=== PATIENT | female | born 1975 | race Caucasian/White ===

== ENCOUNTER 2021-11-16 11:53 | Inpatient (IN) | payer SELFPAY ==
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
[2021-11-16 12:16] VITALS: BP 129/93; PULSE 101; RESP 15; O2SAT 99
--- NOTE | 2021-11-16 12:57 | ECG_ITS ---
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 Measurements Intervals [place] Rate: 84 P: ID: QRS: 63 QRSD: 78 T: 64 QT: 370 QTc: 440 Interpretive Statements Sinus rhythm with short ID interval NONSPECIFIC T-WAVE ABNORMALITY ABNORMAL RHYTHM ECG No previous ECG available for comparison Electronically Signed On 11-16-2021 16:13:16 CDT by Larry Jenkins M.D. [id number]
[2021-11-16 13:11] VITALS: BP 129/93; PULSE 101; RESP 15; O2SAT 99
[2021-11-16 13:20] LABS: Basophils # 0.1 10^3/uL (0.0-0.1); Basophils % 1.1 %; Eosinophils # 0.1 10^3/uL (0.0-0.8); Eosinophils % 1.1 %; Hematocrit 40.5 % (37.0-47.0); Hemoglobin 14.1 g/dL (11.5-15.3); Lymphocytes # 1.4 10^3/uL (0.8-4.8); Lymphocytes % 22.3 %; Mean Corpuscular HGB Conc 34.8 g/dL (30.0-36.0); Mean Corpuscular Hemoglobin 30.5 pg (28.0-34.0); Mean Corpuscular Volume 87.7 fl (81-99); Mean Platelet Volume 9.3 fL (7.4-10.4); Monocytes # 0.4 10^3/uL (0.2-0.9); Monocytes % 6.6 %; Neutrophils % 68.6 %; Nucleated Red Blood Cells % 0 %; Platelet Count 275 10^3/cmm (130-400); Red Blood Count 4.62 10^6/uL (4.1-5.3); Red Cell Distribution Width 12.2 % (12.1-15.1); White Blood Count 6.4 10^3/uL (4.0-10.0)
[2021-11-16 14:23] LABS: Alanine Aminotransferase 19 U/L (0-33); Albumin Level 4.8 g/dL (3.5-5.2); Alkaline Phosphatase 87 IU/L (35-105); Anion Gap 14.7 (5-19); Aspartate Amino Transferase 34 U/L (0-32); Blood Urea Nitrogen 14 mg/dL (6-20); Calcium 9.6 mg/dL (8.5-10.5); Carbon Dioxide 24 mmol/L (22-29); Chloride 102 mmol/L (98-107); Globulin 2.1 g/dL (1.3-4.6); Glomerular Filtration Rate 108.6 mL/min (90-130); Glucose 123 mg/dL (65-115); Osmolality Calculated 286 mOsm/kg (285-295); Potassium 3.7 mmol/L (3.5-5.1); Sodium 137 mmol/L (136-145); Thyroid Stimulating Hormone 1.79 uIU/mL (0.27-4.20); Total Protein 6.9 g/dL (6.6-8.7)
[2021-11-16 14:26] LABS: Acetaminophen < 5.0 ug/mL (10-30); Alcohol Level < 10 mg/dL (0-10); Salicylate < 0.3 mg/dL (3-10)
[2021-11-16 15:53] VITALS: BP 141/89; PULSE 90; RESP 17; O2SAT 97
[2021-11-16 16:45] VITALS: BP 141/89; PULSE 90; RESP 17; O2SAT 97
[2021-11-16 17:34] VITALS: BP 136/83; PULSE 91; RESP 18; TEMP 36.7; O2SAT 99
[2021-11-16] MEDS: acetaminophen 325 mg Tablet 650 MG PO (19:58)
[2021-11-16 20:42] VITALS: BP 109/69; PULSE 98; RESP 17; TEMP 36.7; O2SAT 97
--- NOTE | 2021-11-16 21:22 | PC.NURSE ---
1955-requested tylenol for head ache. 2057-States it is alittle better. She is very labile and fidgety. She is pacing the hallway. She is paranoid. She is refusing to take and PRN's.
--- NOTE | 2021-11-16 22:08 | PC.NURSE ---
Patient is at the nurses station asking a lot of questions. She is wanting to know again when she received Tylenol for her headache. She wrote down the time on her envelope. She stated she still had a headache and wanted Ibuprofen. THAIS Eldridge pulled the Ibuprofen from the [facility] and went through protocol asking the patients name and . Once answered, the RN went to give the Ibuprofen in a med cup with a cup of water. The patient looked at the pill and touched the pill, then refused it stating she would wait until morning. The RN offerred for the patient to see the packaging of the pill and the patient again refused and walked away. She went to her room, walked back up to the bench and wrote something on her envelope and then returned the patient pen she was writing with. sHE THEN WENT BACK TO HER ROOM AGAIN.
--- NOTE | 2021-11-16 23:15 | PC.NURSE ---
2221 Patient is at the desk again. She wants a copy of the policy that allows the staff to go through her personal belongings. She was given a copy of her personal belonging list that she signed, a copy of the medication list which she refused to sign. She began to argue that the paperwork was not correct and the Ibuprofen we have was not counted. The Ibuprofen was then counted with what appears to be 6 tabs. The bottle reads 200mg each but there is no proof that Ibuprofen is in the bottle. Security was called as the patient was escalating, demanding many things. Andres with security came up and went over the welcome policy with the patient which states for security purposes we have the right to go through her things. She continued to ask for her labs and medical records, the doctor who saw her in the Ed, etc. This teletypewriter operator said to the patient that we have been as accommodating as we can be at this time. If she has anymore requests or concerns she should speak to the pulling unit floorhand in the morning. She didn't even write down Carmelo's name that I noticed. She interrupted me several times and was more concerned with what physician would be seeing her in the morning. She stated that this teletypewriter operator was refusing to give her information that was rightly hers and again she was directed to speak with the pulling unit floorhand. She took her envelope and went to her room. Per Andres the application security consultant, he took a law class with her and says that this is why she is acting this way. She refuses to give us a urine sample stating that she will speak to the doctor in the morning about that. (She is on her period).
[2021-11-16] MEDS: blistex lip oint 7 gm Tube 1 APPLIC TOPICAL (23:32)
--- NOTE | 2021-11-17 03:16 | PC.NURSE ---
0300 Patient came storming out of her room. She kicked the brown paper bag outside of her room twice and it landed by room 151. She is in room 153. She walked very fast past the nurses station and went toward room 170. THAIS Sampson stepped into the call and stayed by the door at the nurses station. The patient came out of the call at room 170 and postured just like THAIS Sampson was standing. The patient glared at the nurse as she walked by and went back to her room. She is back in bed now.
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
[2021-11-17 14:00] VITALS: BP 136/80; PULSE 88; RESP 20; TEMP 36.6; O2SAT 98
[2021-11-17 21:35] VITALS: BP 103/65; PULSE 81; RESP 17; O2SAT 100
[2021-11-18 05:48] VITALS: BP 95/60; PULSE 77; RESP 16; O2SAT 97
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
[2021-11-18 14:00] VITALS: BP 93/64; PULSE 82; RESP 16; TEMP 36.4; O2SAT 97
[2021-11-19 06:00] VITALS: BP 101/62; PULSE 82; RESP 16; TEMP 36.6; O2SAT 98
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
[2021-11-19 08:28] VITALS: BP 101/62; PULSE 82; RESP 16; TEMP 36.6; O2SAT 98
== END 2021-11-19 09:11 | disposition home or self-care (01) | DRG 885 ==
LOC: ER 14:57 → NP 15:06
PROVIDERS: Admitting Provider Psychiatry & Neurology Psychiatry; Emergency Provider Emergency Medicine; Visit Provider Psychiatry & Neurology Psychiatry
DX: F23 Brief psychotic disorder (principal); F32.A Depression, unspecified; F15.10 Other stimulant abuse, uncomplicated
CPT/HCPCS: 80053; 80307; 84443; 85025; 93005; 97165; 99285

== ENCOUNTER 2022-04-27 13:03 | Inpatient (IN) | payer MEDICAID, SELFPAY ==
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
[2022-04-27 13:09] VITALS: BMI 22.1
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
[2022-04-27 13:49] LABS: Basophils % 0.6 %; Eosinophils % 0.5 %; Hematocrit 35.4 % (37.0-47.0); Hemoglobin 12.3 g/dL (11.5-15.3); Lymphocytes % 14.6 %; Mean Corpuscular HGB Conc 34.7 g/dL (30.0-36.0); Mean Corpuscular Hemoglobin 30.6 pg (28.0-34.0); Mean Corpuscular Volume 88.1 fl (81-99); Mean Platelet Volume 9.4 fL (7.4-10.4); Monocytes # 0.4 10^3/uL (0.2-0.9); Monocytes % 6.4 %; Neutrophils # 5.12 10^3/uL (1.8-7.7); Neutrophils % 77.6 %; Nucleated Red Blood Cells % 0 %; Platelet Count 272 10^3/cmm (130-400); Red Blood Count 4.02 10^6/uL (4.1-5.3); Red Cell Distribution Width 11.9 % (12.1-15.1); White Blood Count 6.6 10^3/uL (4.0-10.0)
[2022-04-27 14:08] LABS: Alanine Aminotransferase 13 U/L (0-33); Albumin Level 4.5 g/dL (3.5-5.2); Alkaline Phosphatase 87 U/L (35-105); Anion Gap 16.6 (5-19); Aspartate Amino Transferase 21 U/L (0-32); Blood Urea Nitrogen 9 mg/dL (6-20); Calcium 9.6 mg/dL (8.5-10.5); Carbon Dioxide 23 mmol/L (22-29); Chloride 103 mmol/L (98-107); Glomerular Filtration Rate 90.9 mL/min (90-130); Glucose 97 mg/dL (65-115); Lipase 27 U/L (13-60); Osmolality Calculated 287 mOsm/kg (285-295); Potassium 3.6 mmol/L (3.5-5.1); Sodium 139 mmol/L (136-145); Total Bilirubin 0.7 mg/dL (0.15-1.2); Total Protein 7.5 g/dL (6.6-8.7)
[2022-04-27 14:10] LABS: Acetaminophen < 5.0 ug/mL (10-30); Salicylate < 0.3 mg/dL (3-10)
[2022-04-27] MEDS: acetaminophen 500 mg Tablet PO (15:39)
--- NOTE | 2022-04-27 15:59 | PC.NURSE ---
was notified by staff that pt collected urine sample in cup and then poured it down the sink
--- NOTE | 2022-04-27 16:03 | PC.NURSE ---
attempted to call report, nurse unavailable at this time.
--- NOTE | 2022-04-27 16:47 | PC.NURSE ---
report called to THIAS Pereira
[2022-04-27 17:28] VITALS: BP 109/74; PULSE 89; RESP 18; TEMP 36.9; O2SAT 95
[2022-04-27 19:56] VITALS: BP 97/68; PULSE 97; RESP 17; O2SAT 97
[2022-04-27] MEDS: trazodone 50 mg Tablet PO ×2 (20:20→21:53)
[2022-04-27] MEDS: haloperidol 5 mg Tablet PO (20:43)
[2022-04-27] MEDS: hyDROXYzine 25 mg Capsule 50 MG PO (20:43)
[2022-04-28 06:00] VITALS: RESP 18
[2022-04-28 13:03] VITALS: BP 108/72; PULSE 76; RESP 19; TEMP 36.4; O2SAT 99
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
--- NOTE | 2022-04-28 18:08 | PC.NURSE ---
UDS ATTEMPT PATIENT LYING IN BED WITH EYES CLOSED. UPON ASKING HER FOR A URINE SPECIMEN SHE STATED SHE WANTED TO TALK TO HER EARTH SCIENCE PROFESSOR FIRST.
[2022-04-28 19:53] VITALS: BP 97/65; PULSE 83; RESP 15; TEMP 36.4; O2SAT 96
[2022-04-29 06:00] VITALS: BP 102/65; PULSE 109; RESP 18; TEMP 36.4; O2SAT 98; BMI 22.1
[2022-04-29 14:00] VITALS: BP 91/59; PULSE 89; RESP 16; TEMP 36.6; O2SAT 98
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
[2022-04-29 20:26] VITALS: BP 104/68; PULSE 94; RESP 18; TEMP 37.1; O2SAT 98
[2022-04-30 06:00] VITALS: BP 107/72; PULSE 82; RESP 18; TEMP 36.5; O2SAT 99
[2022-04-30 14:00] VITALS: BP 110/73; PULSE 82; RESP 16; TEMP 36.9; O2SAT 98
[2022-04-30] MEDS: nicotine 2 mg Gum BUCCAL (16:50)
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
[2022-04-30] MEDS: hyDROXYzine 25 mg Capsule 50 MG PO (20:33)
[2022-04-30 21:29] VITALS: BP 108/73; PULSE 77; RESP 18; TEMP 36.4; O2SAT 95
[2022-05-01 06:00] VITALS: BP 94/58; PULSE 71; RESP 18; TEMP 36.5; O2SAT 98
[2022-05-01] MEDS: paliperidone ER 6 mg Tablet PO (13:16)
[2022-05-01 14:00] VITALS: BP 107/73; PULSE 110; RESP 18; TEMP 36.5; O2SAT 98
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
[2022-05-01 21:26] VITALS: BP 107/73; PULSE 77; RESP 20; TEMP 36.5; O2SAT 98
[2022-05-02 06:00] VITALS: BP 94/65; PULSE 89; RESP 18; TEMP 36.8; O2SAT 97
[2022-05-02] MEDS: paliperidone ER 6 mg Tablet PO (08:44)
[2022-05-02 14:00] VITALS: BP 95/61; PULSE 115; RESP 18; TEMP 36.6; O2SAT 96
[2022-05-02] MEDS: simethicone 80 mg Chew PO (16:35)
[2022-05-02] MEDS: nicotine 2 mg Gum BUCCAL ×2 (16:44→18:38)
--- NOTE | 2022-05-02 16:52 | P.NPUPN_ITS ---
Subjective NPU Subjective: Patient presents today continuing to have significant paranoia and some cognitive confusion. Met with her and her mother in visitation and mother agreed that she is quite removed from baseline. She agreed that she had improved since the medication was initiated and we discussed the need for a 21- day hold which ultimately everyone is in agreement with. We discussed continuing to maximize the medication and the critical need to end the role that methamphetamine has played in her life by appropriate aftercare after discharge. We also discussed the risk and alternatives of increasing Invega to 9 g daily and she understood and agreed proceed as documented in this note. Mental Status Exam MSE Comments: This is a well-nourished well-developed white female in hospital scrubs with improving grooming and eye contact. No abnormal movements except for occasional psychomotor agitation. Mostly cooperative with exam in mild and occasional moderate distress. Speech was more spontaneous and more normal rate and volume. Mood described as better, affect occasionally hyperkinetic but less odd. Thought process mostly organized. Thought content: She denied suicidal or homicidal ideations, no delusions reported, but continued paranoia and persecutory thinking noted, she denied any auditory or visual hallucinations. Attention and concentration were improving and memory was mostly reliable but she continues to likely omit clinical information due to her concerns about that information might be used against her, but none were formally tested. She is alert and oriented x3. Insight and judgment and impulse control are limited and clearly impacted by her paranoia. Vitals/I&O/Wt Last Vital Signs Temp 98 F 05/02/22 14:00 Pulse 115 H 05/02/22 14:00 Resp 18 05/02/22 14:00 BP 95/61 05/02/22 14:00 Pulse Ox 96 05/02/22 14:00 O2 Del Method 05/02/22 14:00 Data NPU : 04/27/22 13:26 04/27/22 13:26 A&P Assessment and plan (1) Acute psychosis: Status: Acute (2) Depression: Status: Acute (3) Suicide attempt: Status: Acute (4) Methamphetamine abuse: Status: Acute Plan This is a 46-year-old white female with a long history of addiction and recent challenges with methamphetamine who presents with suicidal ideation and limited ability as a historian secondary to medications she was given as well as withdrawal. 1. Continue current medications. Started Invega 6 mg p.o. daily for psychosis and increased to 9 mg p.o. daily. 2. Encourage individual, group and milieu therapy 3. Continue q-15 minute check for safety 4. Recommend sober living treatment at the highest level of care to which the patient is willing to commit. 5. We will file for 21-day hold in the morning. Involuntary Hold Information 96 Hour Hold: 96 Hour Involuntary Admission: Yes 96 Hour Hold Ending Date: 05/03/22 96 Hour Hold Ending Time: 16:45 Attestations NPU Medical Necessity Statement*: Inpatient hospitalization is medically necessary and the clinically appropriate intervention at this time. We will monitor medications and make changes as indicated. Likely length of stay is 6-8 days. Coding Level of Care Code Acute Closet Organizer for [facility] Diagnoses Acute psychosis F23 Depression F32.A Suicide attempt T14.91XA Methamphetamine abuse F15.10
[2022-05-02 20:23] VITALS: PULSE 83; RESP 16; TEMP 36.7; O2SAT 97
[2022-05-02] MEDS: hyDROXYzine 25 mg Capsule 50 MG PO (20:37)
[2022-05-03 06:00] VITALS: BP 106/71; PULSE 89; RESP 16; TEMP 36.6; O2SAT 98
[2022-05-03] MEDS: paliperidone ER 3 mg Tablet 9 MG PO (08:26)
--- NOTE | 2022-05-03 11:53 | W.PM.NPUPNS ---
Subjective NPU Subjective: Patient presents today excited about the fact she was accepted at [facility]. We discussed the challenges that she will be facing in her sobriety and our goal to make sure that she is in the right state of mind to face the challenges. We discussed filing the 21-day hold paperwork this morning and the fact that the hearing will likely be in the next 3 days days. She needed reassurance that ultimately the plan was to discharge her to [facility] when the thought her paranoia has cleared. Mental Status Exam MSE Comments: This is a well-nourished well-developed white female in hospital scrubs with improving grooming and eye contact. No abnormal movements except for occasional psychomotor agitation. Mostly cooperative with exam in mild distress. Speech was more spontaneous and more normal rate and volume. Mood described as better, affect occasionally hyperkinetic but less odd. Thought process mostly organized. Thought content: She denied suicidal or homicidal ideations, no delusions reported, but continued paranoia and persecutory thinking noted, she denied any auditory or visual hallucinations. Attention and concentration were improving and memory was mostly reliable but she continues to likely omit clinical information due to her concerns about that information might be used against her, but none were formally tested. She is alert and oriented x3. Insight and judgment and impulse control are limited and clearly impacted by her paranoia. Vitals/I&O/Wt Last Vital Signs Temp 97.9 F 05/03/22 06:00 Pulse 89 05/03/22 06:00 Resp 16 05/03/22 06:00 BP 106/71 05/03/22 06:00 Pulse Ox 98 05/03/22 06:00 O2 Del Method 05/03/22 06:00 Data NPU : 04/27/22 13:26 04/27/22 13:26 A&P Assessment and plan (1) Acute psychosis: Status: Acute (2) Depression: Status: Acute (3) Suicide attempt: Status: Acute (4) Methamphetamine abuse: Status: Acute Plan This is a 46-year-old white female with a long history of addiction and recent challenges with methamphetamine who presents with suicidal ideation and limited ability as a historian secondary to medications she was given as well as withdrawal. 1. Continue current medications. Started Invega 6 mg p.o. daily for psychosis and increased to 9 mg p.o. daily. 2. Encourage individual, group and milieu therapy 3. Continue q-15 minute check for safety 4. Recommend sober living treatment at the highest level of care to which the patient is willing to commit. She was accepted recommendation upon discharge from the hospital. 5. We will file for 21-day hold in the morning. Involuntary Hold Information 96 Hour Hold: 96 Hour Involuntary Admission: Yes 96 Hour Hold Ending Date: 05/03/22 96 Hour Hold Ending Time: 16:45 Attestations NPU Medical Necessity Statement*: Inpatient hospitalization is medically necessary and the clinically appropriate intervention at this time. We will monitor medications and make changes as indicated. Likely length of stay is 5-7 days. Coding Level of Care Code Acute Project Management Professor for Chad Fwd Diagnoses Acute psychosis F23 Depression F32.A Suicide attempt T14.91XA Methamphetamine abuse F15.10
[2022-05-03 14:00] VITALS: BP 98/65; PULSE 92; RESP 20; TEMP 36.8; O2SAT 97
[2022-05-03] MEDS: nicotine 2 mg Gum BUCCAL ×2 (17:11→20:45)
[2022-05-03 20:43] VITALS: BP 110/76; PULSE 89; RESP 17; TEMP 36.7; O2SAT 96
[2022-05-03] MEDS: hyDROXYzine 25 mg Capsule 50 MG PO (20:45)
[2022-05-04 07:05] VITALS: BP 107/72; PULSE 86; RESP 12; TEMP 36.4; O2SAT 99
[2022-05-04] MEDS: nicotine 2 mg Gum BUCCAL ×4 (09:16→20:12)
[2022-05-04] MEDS: hyDROXYzine 25 mg Capsule 50 MG PO ×2 (09:16→20:09)
[2022-05-04] MEDS: paliperidone ER 3 mg Tablet 9 MG PO (09:16)
[2022-05-04 14:00] VITALS: BP 102/70; PULSE 98; RESP 16; TEMP 36.6; O2SAT 98
--- NOTE | 2022-05-04 18:00 | P.NPUPN_ITS ---
Subjective NPU Subjective: Patient presents today reporting that she is sorry about her resistance to us helping her. She is having slow and steady improvements with some mild lingering psychosis/anxiety. Her aunt visited today and was very supportive. We discussed that at her current pace that it is quite likely she could go to [facility] at the beginning of next week. We discussed the importance of her taking her medication and that we are expecting continued improvement but that she needs to avoid methamphetamine use in the future given this reaction. Mental Status Exam MSE Comments: This is a well-nourished well-developed white female in hospital scrubs with improving grooming and eye contact. No abnormal movements except for occasional psychomotor agitation. Mostly cooperative with exam in mild distress. Speech was more spontaneous and more normal rate and volume. Mood described as better, affect occasionally hyperkinetic but less odd. Thought process mostly organized. Thought content: She denied suicidal or homicidal ideations, no delusions reported, but continued paranoia and persecutory thinking noted, she denied any auditory or visual hallucinations. Attention and concentration were improving and memory was mostly reliable but she continues to likely omit clinical information due to her concerns about that information might be used against her, but none were formally tested. She is alert and oriented x3. Insight and judgment and impulse control are limited and clearly impacted by her paranoia. Vitals/I&O/Wt Last Vital Signs Temp 98 F 05/04/22 14:00 Pulse 98 05/04/22 14:00 Resp 16 05/04/22 14:00 BP 102/70 05/04/22 14:00 Pulse Ox 98 05/04/22 14:00 O2 Del Method 05/04/22 14:00 Data NPU : 04/27/22 13:26 04/27/22 13:26 A&P Assessment and plan (1) Acute psychosis: (2) Depression: (3) Suicide attempt: (4) Methamphetamine abuse: Plan This is a 46-year-old white female with a long history of addiction and recent challenges with methamphetamine who presents with suicidal ideation and limited ability as a historian secondary to medications she was given as well as withdrawal. 1. Continue current medications. Started Invega 6 mg p.o. daily for psychosis and increased to 9 mg p.o. daily. 2. Encourage individual, group and milieu therapy 3. Continue q-15 minute check for safety 4. Recommend sober living treatment at the highest level of care to which the patient is willing to commit. She was accepted at [facility] upon discharge from the hospital. 5. Her 21 day hold hearing date is 05/08/2022. Involuntary Hold Information 96 Hour Hold: 96 Hour Involuntary Admission: Yes 96 Hour Hold Ending Date: 05/03/22 96 Hour Hold Ending Time: 16:45 Attestations NPU Medical Necessity Statement*: Inpatient hospitalization is medically necessary and the clinically appropriate intervention at this time. We will monitor medications and make changes as indicated. Likely length of stay is 4-6 days. Coding Level of Care Code Acute Electrical And Instrumentation Manager for g Fwd Diagnoses Acute psychosis F23 Depression F32.A Suicide attempt T14.91XA Methamphetamine abuse F15.10
[2022-05-04] MEDS: simethicone 80 mg Chew PO (18:57)
[2022-05-04 19:34] VITALS: BP 112/78; PULSE 100; RESP 18; TEMP 36.7; O2SAT 99
[2022-05-04] MEDS: OLANZapine 5 mg ODT PO (21:59)
[2022-05-05 06:00] VITALS: BP 117/82; PULSE 91; RESP 16; TEMP 36.4; O2SAT 98
[2022-05-05] MEDS: paliperidone ER 3 mg Tablet 9 MG PO (08:08)
--- NOTE | 2022-05-05 08:24 | P.NPUPN_ITS ---
Subjective NPU Subjective: Patient presents today continuing to focus on ultimately going to [facility] she will likely gain of the week. She is excited about her children visiting today. She continues to have decreasing paranoia though is still present. She denies any side effects from the medication and reports eating fine and sleeping better. Mental Status Exam MSE Comments: This is a well-nourished well-developed white female in hospital scrubs with improving grooming and eye contact. No abnormal movements except for resolving psychomotor agitation. Mostly cooperative with exam in no acute distress. Speech was more spontaneous and more normal rate and volume. Mood described as better, affect congruent and less odd. Thought process mostly organized. Thought content: She denied suicidal or homicidal ideations, no delusions reported, but clearly resolving paranoia and persecutory thinking noted, she denied any auditory or visual hallucinations. Attention and concentration were improving and memory was mostly reliable but she continues to likely omit clinical information due to her concerns about that information might be used against her, but none were formally tested. She is alert and oriented x3. Insight and judgment and impulse control are limited, but improving. Vitals/I&O/Wt Last Vital Signs Temp 98.1 F 05/04/22 19:34 Pulse 100 05/04/22 19:34 Resp 18 05/04/22 19:34 BP 112/78 05/04/22 19:34 Pulse Ox 99 05/04/22 19:34 O2 Del Method 05/04/22 14:00 Data NPU : 04/27/22 13:26 04/27/22 13:26 A&P Assessment and plan (1) Acute psychosis: (2) Depression: (3) Suicide attempt: (4) Methamphetamine abuse: Plan This is a 46-year-old white female with a long history of addiction and recent challenges with methamphetamine who presents with suicidal ideation and limited ability as a historian secondary to medications she was given as well as withdrawal. 1. Continue current medications. Started Invega 6 mg p.o. daily for psychosis and increased to 9 mg p.o. daily. 2. Encourage individual, group and milieu therapy 3. Continue q-15 minute check for safety 4. Recommend sober living treatment at the highest level of care to which the patient is willing to commit. She was accepted at [facility] upon discharge from the hospital. 5. Her 21 day hold hearing date is 05/08/2022. Involuntary Hold Information 96 Hour Hold: 96 Hour Involuntary Admission: Yes 96 Hour Hold Ending Date: 05/03/22 96 Hour Hold Ending Time: 16:45 Attestations NPU Medical Necessity Statement*: Inpatient hospitalization is medically necessary and the clinically appropriate intervention at this time. We will monitor medications and make changes as indicated. Likely length of stay is 3-5 days. Coding Level of Care Code Acute Machine Sorter for Chad Fwd Diagnoses Acute psychosis F23 Depression F32.A Suicide attempt T14.91XA Methamphetamine abuse F15.10
[2022-05-05] MEDS: nicotine 2 mg Gum BUCCAL ×2 (11:51→14:15)
[2022-05-05 14:00] VITALS: BP 109/77; PULSE 106; RESP 18; TEMP 36.4; O2SAT 94
[2022-05-05] MEDS: hyDROXYzine 25 mg Capsule 50 MG PO (16:28)
[2022-05-05] MEDS: simethicone 80 mg Chew PO ×2 (16:28→20:25)
[2022-05-05 20:10] VITALS: BP 97/64; PULSE 107; RESP 16; TEMP 36.7; O2SAT 96
[2022-05-05] MEDS: trazodone 50 mg Tablet PO (20:26)
[2022-05-06 06:00] VITALS: BP 102/69; PULSE 90; RESP 18; TEMP 36.5; O2SAT 98; BMI 22.1
[2022-05-06] MEDS: paliperidone ER 3 mg Tablet 9 MG PO (08:13)
--- NOTE | 2022-05-06 08:50 | P.NPUPN_ITS ---
Subjective NPU Subjective: Patient presents today reporting that she is feeling less paranoid and endorsing optimism that this is clearing. Staff reports that she is having less paranoid behavior, less odd door shutting etc. she continues to report a plan to go to [facility] and reports a plan to stay there for as long as necessary for her to get her psychosis and addiction under control. She is eating and sleeping much better. Mental Status Exam MSE Comments: This is a well-nourished well-developed white female in hospital scrubs with improving grooming and eye contact. No abnormal movements except for resolving psychomotor agitation. Mostly cooperative with exam in no acute distress. Speech was more spontaneous and more normal rate and volume. Mood described as better, affect congruent. Thought process mostly organized. Thought content: She denied suicidal or homicidal ideations, no delusions r eported, but resolving paranoia and persecutory thinking noted, she denied any auditory or visual hallucinations. Attention and concentration were improving and memory was mostly reliable but she continues to likely omit clinical information due to her concerns about that information might be used against her, but none were formally tested. She is alert and oriented x3. Insight and judgment and impulse control are limited, but improving. Vitals/I&O/Wt Last Vital Signs Temp 97.7 F 05/06/22 06:00 Pulse 90 05/06/22 06:00 Resp 18 05/06/22 06:00 BP 102/69 05/06/22 06:00 Pulse Ox 98 05/06/22 06:00 O2 Del Method 05/04/22 14:00 Data NPU : 04/27/22 13:26 04/27/22 13:26 A&P Assessment and plan (1) Acute psychosis: (2) Depression: (3) Suicide attempt: (4) Methamphetamine abuse: Plan This is a 46-year-old white female with a long history of addiction and recent challenges with methamphetamine who presents with suicidal ideation and limited ability as a historian secondary to medications she was given as well as withdrawal. 1. Continue current medications. Started Invega 6 mg p.o. daily for psychosis and increased to 9 mg p.o. daily. 2. Encourage individual, group and milieu therapy 3. Continue q-15 minute check for safety 4. Recommend sober living treatment at the highest level of care to which the patient is willing to commit. She was accepted at [facility] upon dis charge from the hospital. 5. Her 21 day hold hearing date is 05/08/2022. Involuntary Hold Information 96 Hour Hold: 96 Hour Involuntary Admission: Yes 96 Hour Hold Ending Date: 05/03/22 96 Hour Hold Ending Time: 16:45 Attestations NPU Medical Necessity Statement*: Inpatient hospitalization is medically necessary and the clinically appropriate intervention at this time. We will monitor medications and make changes as indicated. Likely length of stay is 2-4 days. Coding Level of Care Code Acute Under Sheriff for [facility] Fwd Diagnoses Acute psychosis F23 Depression F32.A Suicide attempt T14.91XA Methamphetamine abuse F15.10
[2022-05-06] MEDS: nicotine 2 mg Gum BUCCAL ×3 (11:50→18:10)
[2022-05-06 14:00] VITALS: BP 125/81; PULSE 107; RESP 18; TEMP 36.4; O2SAT 97
[2022-05-06] MEDS: hyDROXYzine 25 mg Capsule 50 MG PO (16:03)
[2022-05-06] MEDS: simethicone 80 mg Chew PO (18:10)
[2022-05-06] MEDS: OLANZapine 5 mg ODT PO (18:33)
[2022-05-06 20:03] VITALS: BP 120/74; PULSE 102; RESP 16; TEMP 36.4; O2SAT 97
[2022-05-06] MEDS: trazodone 50 mg Tablet PO (20:14)
[2022-05-07] MEDS: acetaminophen 325 mg Tablet 650 MG PO (01:03)
[2022-05-07 06:00] VITALS: BP 98/69; PULSE 88; RESP 14; TEMP 36.3; O2SAT 98
[2022-05-07] MEDS: paliperidone ER 3 mg Tablet 9 MG PO (08:15)
[2022-05-07] MEDS: nicotine 2 mg Gum BUCCAL ×3 (08:15→16:27)
[2022-05-07] MEDS: simethicone 80 mg Chew PO (11:38)
--- NOTE | 2022-05-07 12:42 | W.PM.NPUPNS ---
Subjective NPU Subjective: The patient is a 46-year-old white female admitted with suicidal ideation by gunshot with a history of methamphetamine abuse abuse and depression. The patient reports that she had removed her rifle from her home as this was her sons. She reported not feeling suicidal and reports that she was willing to consider psychiatric counseling. She endorses a history of PTSD related symptoms and states that she has never received any treatment for this in the past. She reports no side effects from the paliperidone. She reports no hallucinations at this time. She continued to minimize her depression and stated that she had never intended on shooting herself with a gun. Mental Status Exam MSE Comments: This is a well-nourished well-developed white female in hospital scrubs with improving grooming and eye contact. No abnormal movements except for resolving psychomotor agitation. Mostly cooperative with exam in no acute distress. Speech was more spontaneous and more normal rate and volume. Mood described as better, affect was constricted and mood incongruent. Thought process linear, but superficial. Thought content: She denied suicidal or homicidal ideation, no delusions reported, no clear evidence of paranoia. She denied any auditory or visual hallucinations. Attention and concentration were adequate and memory was selectively good with attempts at minimizing clear facts reported previously. She is alert and oriented x3. Insight and judgment and impulse control are limited, but improving. Vitals/I&O/Wt Last Vital Signs Temp 97.4 F L 05/07/22 06:00 Pulse 88 05/07/22 06:00 Resp 14 05/07/22 06:00 BP 98/69 05/07/22 06:00 Pulse Ox 98 05/07/22 06:00 O2 Del Method 05/04/22 14:00 Weight last 48 hrs Weight 56.699 kg Data NPU : 04/27/22 13:26 04/27/22 13:26 A&P Assessment and plan (1) Acute psychosis: (2) Depression: (3) Suicide attempt: (4) Methamphetamine abuse: Plan This is a 46-year-old white female with a long history of addiction and recent challenges with methamphetamine who presents with suicidal ideation and limited ability as a historian secondary to medications she was given as well as withdrawal. 1. Continue current medications. Continue invega 9mg daily 2. Encourage individual, group and milieu therapy 3. Continue q-15 minute check for safety 4. Recommend sober living treatment at the highest level of care to which the patient is willing to commit. She was accepted at [facility] upon discharge from the hospital. 5. Her 21 day hold hearing date is 05/08/2022. Involuntary Hold Information 96 Hour Hold: 96 Hour Involuntary Admission: Yes 96 Hour Hold Ending Date: 05/03/22 96 Hour Hold Ending Time: 16:45 Attestations NPU Medical Necessity Statement*: Inpatient hospitalization is medically necessary and the clinically appropriate intervention at this time. We will monitor medications and make changes as indicated. Likely length of stay is 2-4 days. Coding Level of Care Code Established Pt Acute Event Marketing Representative for [facility] Fwd Patient Type Established History Problem Focused Exam Problem Focused Medical Decision Making Straight Forward Diagnoses Acute psychosis F23 Depression F32.A Suicide attempt T14.91XA Methamphetamine abuse F15.10
[2022-05-07 14:00] VITALS: BP 94/60; PULSE 106; RESP 18; TEMP 36.6; O2SAT 96
[2022-05-07] MEDS: ibuprofen 600 mg Tablet PO (17:01)
[2022-05-07] MEDS: magnesium hydroxide 30 mL UDC PO (18:47)
[2022-05-07 20:25] VITALS: BP 117/76; PULSE 135; RESP 18; TEMP 36.7; O2SAT 96
[2022-05-07] MEDS: trazodone 50 mg Tablet PO (20:32)
[2022-05-07] MEDS: hyDROXYzine 25 mg Capsule 50 MG PO (23:04)
[2022-05-08] MEDS: OLANZapine 5 mg ODT PO (01:05)
--- NOTE | 2022-05-08 01:08 | PC.NURSE ---
Pt came to desk requesting the pill that goes under the tongue . state she just kind get to sleep . pt was asked what was making her anxious enough that she can't sleep , pt stated wanting to go home . Pt has voiced how she feels about not being released like Dr Messina and she discussed.
[2022-05-08 06:00] VITALS: BP 99/62; PULSE 85; RESP 16; TEMP 36.4; O2SAT 98
[2022-05-08] MEDS: nicotine 2 mg Gum BUCCAL (08:05)
[2022-05-08] MEDS: paliperidone ER 3 mg Tablet 9 MG PO (08:05)
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
[2022-05-08 12:10] VITALS: BP 99/62; PULSE 85; RESP 16; TEMP 36.4; O2SAT 98
== END 2022-05-08 14:05 | disposition home or self-care (01) | DRG 914 ==
LOC: ER 13:49 → NP 14:55
PROVIDERS: Admitting Provider Psychiatry & Neurology Psychiatry; Emergency Provider Emergency Medicine; Visit Provider Psychiatry & Neurology Psychiatry
DX: T14.91XA Suicide attempt, initial encounter (principal); F23 Brief psychotic disorder; F15.23 Other stimulant dependence with withdrawal; Y92.9 Unspecified place or not applicable; F32.A Depression, unspecified; Z81.8 Family history of other mental and behavioral disorders; Z62.810 Personal history of physical and sexual abuse in childhood; Z62.811 Personal history of psychological abuse in childhood
CPT/HCPCS: 80053; 80307; 83690; 85025; 97150; 97165; 99285

== ENCOUNTER → 2022-12-24 14:22 | Outpatient (BNVA) | payer BC, SELFPAY | PROVIDERS: Visit Provider Nurse Practitioner | DX: Z79.899 Other long term (current) drug therapy (principal) | CPT/HCPCS: 80061; 83036 ==

== ENCOUNTER 2023-10-21 17:05 | Emergency (ER) | payer SELFPAY ==
[2023-10-21 17:15] VITALS: BP 135/87; PULSE 80; RESP 18; TEMP 36.7; O2SAT 98; BMI 25.3
--- NOTE | 2023-10-21 17:21 | ECG_ITS ---
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 Measurements Intervals [place] Rate: 76 P: 74 [place]: 120 QRS: 76 QRSD: 81 T: 60 QT: 395 QTc: 445 Interpretive Statements SINUS RHYTHM WITH SINUS ARRHYTHMIA Compared to ECG 11/16/2021 13:24:31 Short [place] interval no longer present T-wave abnormality no longer present Electronically Signed On 10-22-2023 22:59:08 CDT by Alba Villeda M.D. [id number]
--- NOTE | 2023-10-21 17:21 | XRR_ITS ---
PROCEDURE INFORMATION: Exam: XR Chest Exam date and time: 10/21/2023 5:40 PM Age: 48 years old Clinical indication: Chest wall pain; Additional info: Chest pain TECHNIQUE: Imaging protocol: Radiologic exam of the chest. Views: 1 view. COMPARISON: No relevant prior studies available. FINDINGS: Lungs: Unremarkable. No consolidation or mass. Pleural spaces: Unremarkable. No pleural effusion. No pneumothorax. Heart/Mediastinum: Unremarkable. No cardiomegaly. Bones/joints: Unremarkable. XR/XR chest 1V portable [id number] IMPRESSION: No acute findings.
[2023-10-21 18:39] LABS: Basophils % 0.4 %; Eosinophils % 0.1 %; Hematocrit 35.8 % (36-47); Lymphocytes # 1.6 10^3/uL (0.8-4.8); Lymphocytes % 20.4 %; Mean Corpuscular HGB Conc 33.8 g/dL (30-55); Mean Corpuscular Hemoglobin 29.7 pg (27-33); Mean Platelet Volume 9.2 fL (7.4-10.4); Monocytes # 0.4 10^3/uL (0.2-0.9); Monocytes % 5.1 %; Neutrophils # 5.91 10^3/uL (1.8-7.7); Neutrophils % 73.8 %; Nucleated Red Blood Cells % 0 %; Platelet Count 234 10^3/cmm (157-399); Red Blood Count 4.07 10^6/uL (3.85-5.65); Red Cell Distribution Width 12.1 % (12.1-15.1); White Blood Count 8.02 10^3/uL (3.29-11.43)
[2023-10-21 19:04] LABS: Alanine Aminotransferase 20 U/L (0-33); Albumin Level 4.6 g/dL (3.5-5.2); Alkaline Phosphatase 75 U/L (35-105); Aspartate Amino Transferase 25 U/L (0-32); Blood Urea Nitrogen 11 mg/dL (6-20); Calcium 9.2 mg/dL (8.5-10.5); Carbon Dioxide 25 mmol/L (22-29); Chloride 103 mmol/L (98-107); Creatinine Clr Calc Pharmacy 127.3642; Globulin 2.7 g/dL (1.3-4.6); Glomerular Filtration Rate 132.8 mL/min (90-130); Glucose 102 mg/dL (65-115); Osmolality Calculated 292 mOsm/kg (285-295); Sodium 141 mmol/L (136-145); Total Bilirubin 0.4 mg/dL (0.15-1.2); Total Protein 7.3 g/dL (6.6-8.7); Troponin(5th) Baseline < 6 ng/L (0-10)
--- NOTE | 2023-10-21 19:21 | ECG_ITS ---
[facility] Test Date: 2023-10-21 Pat Name: Viviane Anderson Department: Room: Gender: Female Manager Functional: : 1975 Requested By: Andres Soto Order Number: [id number] Cordon MD: Alba Villeda M.D. Measurements Intervals [place] Rate: 66 P: 56 [place]: 121 QRS: 47 QRSD: 73 T: 38 QT: 392 QTc: 413 Interpretive Statements SINUS RHYTHM NONSPECIFIC T-WAVE ABNORMALITY Compared to ECG 10/21/2023 16:11:19 T-wave abnormality now present Sinus arrhythmia no longer present Electronically Signed On 10-22-2023 23:10:23 CDT by Alba Villeda M.D. [id number]
--- NOTE | 2023-10-21 19:28 | ED_ITS ---
HPI - Chest Pain 2 General: Chief Complaint: Chest Pain Stated Complaint: chest pains, n, neck arm pain Time Seen by Provider: 10/21/23 19:26 History of Present Illness: 48-year-old female presents emergency de partment states that she was seen by her primary care provider 5 days ago with concerns of flulike symptoms and she states she received a swab and was advised that she did not have influenza. She states she also has been intermittently waking up and feeling like she had a very sour stomach and a burning type pain to her substernal epigastric area. She states she also feels intermittently like there is a vein on the side of her neck that feels like it is on fire she states nothing specifically makes it feel like that and nothing seems to cause it to feel better. She states she has been under a moderate amount of stress because they just decreased her work hours by 5 hours and she is concerned about the decreased and pay. She states she does have intermittent nausea and some diarrhea and has had a cough that is nonproductive for the previous week, but states that it is much better today. 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 Vital signs as documented. No acute distress at present. Alert and oriented-to person, place, time and situation. Head, eyes, ears, nose, mouth, throat: Normocephalic, atraumatic. Pupils-equal, round, reactive to light. No scleral icterus. Normal-appearing external ears. Normal appearing nasal turbinates, no drainage. No obvious oral lesions, posterior oropharynx without erythema or exudates. Neck: Supple, trachea is midline, no lymphadenopathy, no jugular venous distension, thyromegaly, or carotid bruits. Carotid upstrokes are brisk bilaterally. Lungs: clear to auscultation to all lung solares. Symmetrical rise and fall of chest, no obvious signs of increased work of breathing at present. Cardiac: Regular rate and rhythm, positive S1, S2. No murmurs, rubs or gallops that I can appreciate Abdomen: Soft, non-tender to palpation, normal active bowel sounds to all quadrants. No palpable masses, no organomegaly and abdominal bruits. Extremities: 2+ pulses in the upper extremities that are equal bilaterally, 2+ pulses in the lower extremities that are equal bilaterally. Non-edematous. Moves all extremities well, sensation to all extremities are noted. Skin: Warm, dry, intact. Course 2 Vital Signs: Vital signs: Vital Signs Temperature 98.1 F 10/21/23 17:15 Pulse Rate 71 10/21/23 21:19 Respiratory Rate 24 H 10/21/23 21:19 Blood Pressure 135/87 10/21/23 17:15 Pulse Oximetry 98 10/21/23 17:15 Oxygen Delivery Me thod Room Air 10/21/23 17:15 MDM - Chest Pain Medical Decision Making Physical exam completed and documented reviewed the patient's CBC and CMP are without any significant abnormalities. UA is negative physical exam findings and history lend more towards GERD and acid reflux I will prescribe her pantoprazole and have her follow-up with her primary care provider. Medical Records I reviewed the patient's medical records. Lab Data I reviewed the patient's lab results. 10/21/23 18:14 10/21/23 18:14 Radiology Impressions Chest X-Ray 10/21/23 17:21 IMPRESSION: No acute findings. Laboratory Results WBC 8.02 10^3/uL (3.29-11.43) 10/21/23 18:14 RBC 4.07 10^6/uL (3.85-5.65) 10/21/23 18:14 Hgb 12.10 g/dL (11.27-16.99) 10/21/23 18:14 Hct 35.8 % (36-47) L 10/21/23 18:14 MCV 88.0 fl (85-98) 10/21/23 18:14 MCH 29.7 pg (27-33) 10/21/23 18:14 MCHC 33.8 g/dL (30-55) 10/21/23 18:14 RDW 12.1 % (12.1-15.1) 10/21/23 18:14 Plt Count 234 10^3/cmm (157-399) 10/21/23 18:14 MPV 9.2 fL (7.4-10.4) 10/21/23 18:14 Neut % (Auto) 73.8 % 10/21/23 18:14 Lymph % (Auto) 20.4 % 10/21/23 18:14 [place] % (Auto) 5.1 % 10/21/23 18:14 Eos % (Auto) 0.1 % 10/21/23 18:14 Baso % (Auto) 0.4 % 10/21/23 18:14 Neut # (Auto) 5.91 10^3/uL (1.8-7.7) 10/21/23 18:14 Lymph # (Auto) 1.6 10^3/uL (0.8-4.8) 10/21/23 18:14 [place] # (Auto) 0.4 10^3/uL (0.2-0.9) 10/21/23 18:14 Eos # (Auto) 0.0 10^3/uL (0.0-0.8) 10/21/23 18:14 Baso # (Auto) 0.0 10^3/uL (0.0-0.1) 10/21/23 18:14 Nucleated RBC % (auto) 0 % 10/21/23 18:14 Nucleated RBCs # 0.0 /100WBC 10/21/23 18:14 Sodium 141 mmol/L (136-145) 10/21/23 18:14 Potassium 4.0 mmol/L (3.5-5.1) 10/21/23 18:14 Chloride 103 mmol/L (98-107) 10/21/23 18:14 Carbon Dioxide 25 mmol/L (22-29) 10/21/23 18:14 Anion Gap 17.0 (5-19) 10/21/23 18:14 BUN 11 mg/dL (6-20) 10/21/23 18:14 Creatinine 0.5 mg/dL (0.5-0.9) 10/21/23 18:14 GFR Calculation 132.8 mL/min (90-130) H 10/21/23 18:14 Glucose 102 mg/dL (65-115) 10/21/23 18:14 Calculated Osmolality 292 mOsm/kg (285-295) 10/21/23 18:14 Calcium 9.2 mg/dL (8.5-10.5) 10/21/23 18:14 Total Bilirubin 0.4 mg/dL (0.15-1.2) 10/21/23 18:14 AST 25 U/L (0-32) 10/21/23 18:14 ALT 20 U/L (0-33) 10/21/23 18:14 Alkaline Phosphatase 75 U/L (35-105) 10/21/23 18:14 Troponin T Baseline < 6 ng/L (0-10) 10/21/23 18:14 Troponin T 120 Minute 6.00 ng/L (0-10) 10/21/23 20:12 Delta Troponin T 0.81943 ABS# (0-10) 10/21/23 20:12 Total Protein 7.3 g/dL (6.6-8.7) 10/21/23 18:14 Albumin 4.6 g/dL (3.5-5.2) 10/21/23 18:14 Globulin 2.7 g/dL (1.3-4.6) 10/21/23 18:14 HCG, Qual Negative (Negative) 10/21/23 19:48 Urine Color Yellow (Yellow) 10/21/23 19:48 Urine Appearance Clear (CLEAR) 10/21/23 19:48 Urine pH 7 (5-7) 10/21/23 19:48 Ur Specific [place] 1.015 (1.005-1.030) 10/21/23 19:48 Urine Protein Neg (Negative) 10/21/23 19:48 Urine Glucose (UA) Norm (Normal) 10/21/23 19:48 Urine Ketones Negative (Negative) 10/21/23 19:48 Urine Blood Neg (Negative) 10/21/23 19:48 Urine Nitrate Negative (Negative) 10/21/23 19:48 Urine Bilirubin Neg (Negative) 10/21/23 19:48 Urine Urobilinogen Norm mg/dL (Negative) 10/21/23 19:48 Ur Leukocyte Esterase Negative (Negative) 10/21/23 19:48 Urine Opiates Screen Negative ng/mL (Negative) 10/21/23 19:48 Ur Barbiturates Screen Negative ng/mL (Negative) 10/21/23 19:48 Ur Phencyclidine Scrn Negative ng/mL (Negative) 10/21/23 19:48 Ur Amphetamines Screen Negative ng/mL (Negative) 10/21/23 19:48 U Benzodiazepines Scrn Negative ng/mL (Negative) 10/21/23 19:48 Urine Cocaine Screen Negative ng/mL (Negative) 10/21/23 19:48 U Marijuana (THC) Screen Negative ng/mL (Negative) 10/21/23 19:48 All radiology interpretation(s) finalized by discharge Discharge Plan Discharge Patient Disposition: Home Clinical Impression: Atypical chest pain Gastroesophageal reflux disease Qualifiers: Esophagitis presence: without esophagitis Qualified Code(s): K21.9 - Gastro- esophageal reflux disease without esophagitis Condition: Stable Prescriptions: New pantoprazole 20 mg tablet,delayed release (DR/EC) 20 mg PO DAILY 28 Days Qty: 30 0RF No Action fluoxetine [Prozac] 40 mg capsule 40 mg PO DAILY Qty: 30 2RF paliperidone [Invega] 9 mg tablet extended release 24 hr 9 mg PO DAILY Qty: 30 2RF Discharge Orders: Discharge ED (Routine); Ordered 10/21/23 Ordered By: Adan Kolb Referrals: Adan Babin MD [Physician] - Discharge Diet: Usual diet Discharge Activity: Resume usual activity Patient Instructions: Opioid Safety, Pain Management Activity Restrictions/Additional Instructions: Activity Restrictions/Additional Instructions: Thank you for choosing [facility] for your healthcare needs today. Please realize that you were seen in the Emergency Department and that we are providing you with an emergency medical screening exam and this may not be a complete and all inclusive of all the testing and or medical work-up that you may need to determine your ailment or severity of your illness. It is very important that you follow-up as instructed with your Primary care provider or Specialist for additional evaluation and to discuss your medical treatment plan. You may return to the Emergency Department should you have concerns or if your condition changes or worsens in any way. Coding Level of Care Code ED Mechanical Technologist for Chad Breaux
[2023-10-21 20:09] LABS: Add Urine Microscopic? NO; Charge for UA Resulting for Rev
[2023-10-21 20:18] LABS: Bilirubin Urine Neg (Negative); Blood Urine Neg (Negative); Glucose Urine UA Norm (Normal); Ketones Urine Negative (Negative); Leukocyte Esterase Urine Negative (Negative); Nitrate Urine Negative (Negative); Protein Urine Neg (Negative); Specific Gravity, Urine 1.015 (1.005-1.030); Urine Appearance Clear (CLEAR); Urine Color Yellow (Yellow); Urobilinogen Urine Norm (Negative); pH Urine 7 (5-7)
[2023-10-21 20:19] LABS: HCG Qualitative Urine. Negative (Negative)
[2023-10-21 20:20] LABS: Amphetamines Screen Urine Negative (Negative); Barbiturates Screen Urine Negative (Negative); Benzodiazepines Screen Urine Negative (Negative); Cocaine Screen Urine Negative (Negative); Opiate Screen Urine Negative (Negative); PCP Screen Urine Negative (Negative); THC Screen Urine Negative (Negative)
[2023-10-21 20:48] LABS: Troponin 5 2HR Delta 0.00001 ABS# (0-10)
[2023-10-21 21:09] VITALS: PULSE 81; RESP 22
[2023-10-21 21:19] VITALS: PULSE 71; RESP 24
== END 2023-10-21 21:20 | disposition home or self-care (01) ==
PROVIDERS: Emergency Medicine; Emergency Provider Internal Medicine
DX: R07.89 Other chest pain (principal); K21.9 Gastro-esophageal reflux disease without esophagitis
CPT/HCPCS: 36415; 71045; 80053; 80306; 81003; 81025; 84484; 85025; 93005; 99285

== ENCOUNTER 2024-04-11 08:51 | Emergency (ER) | payer SELFPAY ==
[2024-04-11] VITALS (7 sets, daily range): BP systolic 113–123; BP diastolic 60–87; PULSE 78–94; RESP 18; TEMP 36.9; O2SAT 97–99; BMI 24.7
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
[2024-04-11 09:45] LABS: Basophils % 0.5 %; Eosinophils % 0.5 %; Hematocrit 36.3 % (36-47); Lymphocytes % 13.2 %; Mean Corpuscular HGB Conc 33.6 g/dL (30-55); Mean Corpuscular Volume 89.4 fl (85-98); Mean Platelet Volume 8.8 fL (7.4-10.4); Monocytes # 0.6 10^3/uL (0.2-0.9); Monocytes % 7.2 %; Neutrophils # 6.11 10^3/uL (1.8-7.7); Neutrophils % 78.1 %; Nucleated Red Blood Cells % 0 %; Platelet Count 254 10^3/cmm (157-399); Red Blood Count 4.06 10^6/uL (3.85-5.65); Red Cell Distribution Width 12.6 % (12.1-15.1); White Blood Count 7.82 10^3/uL (3.29-11.43)
[2024-04-11 10:01] LABS: Alanine Aminotransferase 14 U/L (0-33); Albumin Level 4.3 g/dL (3.5-5.2); Alkaline Phosphatase 88 U/L (35-105); Anion Gap 16.8 (5-19); Aspartate Amino Transferase 23 U/L (0-32); Blood Urea Nitrogen 14 mg/dL (6-20); Calcium 8.8 mg/dL (8.5-10.5); Carbon Dioxide 20 mmol/L (22-29); Chloride 106 mmol/L (98-107); Creatinine Clr Calc Pharmacy 126.1559; Globulin 2.7 g/dL (1.3-4.6); Glomerular Filtration Rate 132.8 mL/min (90-130); Glucose 102 mg/dL (65-115); Osmolality Calculated 289 mOsm/kg (285-295); Potassium 3.8 mmol/L (3.5-5.1); Sodium 139 mmol/L (136-145); Total Bilirubin 0.8 mg/dL (0.15-1.2)
[2024-04-11 10:02] LABS: Acetaminophen < 5.0 ug/mL (10-30); Alcohol Level < 10 mg/dL (0-10); Salicylate < 0.3 mg/dL (3-10)
== END 2024-04-11 11:26 | disposition home or self-care (01) ==
PROVIDERS: Emergency Provider Family Medicine
DX: F41.9 Anxiety disorder, unspecified (principal)
CPT/HCPCS: 36415; 80053; 80307; 85025; 99283

== ENCOUNTER 2025-01-07 13:26 | Emergency (ER) | payer MEDICAID, SELFPAY ==
[2025-01-07] VITALS (7 sets, daily range): BP systolic 123–144; BP diastolic 86–107; PULSE 78–91; RESP 16; TEMP 36.9; O2SAT 97–100; BMI 27.1
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
[2025-01-07] MEDS: ketorolac 30 mg/mL INJ IM (16:02)
== END 2025-01-07 16:15 | disposition home or self-care (01) ==
PROVIDERS: Emergency Provider Nurse Practitioner
DX: Z04.1 Encounter for examination and observation following transport accident (principal); S16.1XXA Strain of muscle, fascia and tendon at neck level, initial encounter; S00.31XA Abrasion of nose, initial encounter; M25.532 Pain in left wrist; M25.531 Pain in right wrist; M25.562 Pain in left knee; M25.561 Pain in right knee; V89.2XXA Person injured in unspecified motor-vehicle accident, traffic, initial encounter
CPT/HCPCS: 70450; 71045; 72125; 73110; 73562; 96372; 99284; J1885

== ENCOUNTER → 2025-02-13 12:04 | Outpatient (BNVA) | payer MEDICAID, SELFPAY | PROVIDERS: Visit Provider Emergency Medicine | DX: J06.9 Acute upper respiratory infection, unspecified (principal) | CPT/HCPCS: 87426 ==

== ENCOUNTER 2025-06-03 10:38 | Outpatient (CLI) | payer MEDICAID, SELFPAY ==
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
== END 2025-06-03 10:39 | disposition home or self-care (01) ==
LOC: MOBLMAM 10:41
PROVIDERS: PCP Family Medicine; Visit Provider Family Medicine
DX: Z12.31 Encounter for screening mammogram for malignant neoplasm of breast (principal); R92.323 Mammographic fibroglandular density, bilateral breasts
CPT/HCPCS: 77063; 77067